=== PATIENT | female | born 1960 | race Caucasian/White ===

== ENCOUNTER 2024-03-04 11:15 | Outpatient (REF) | payer MEDICARE, SELFPAY ==
[2024-03-04 13:30] LABS: MANUAL DIFF FLAG NO
[2024-03-04 13:34] LABS: Basophils Absolute Auto 0.1 X10*3/uL (0.0-0.2); Basophils Percent Auto 1.2 % (0-2); Eosinophils Absolute Auto 0.1 X10*3/uL (0.0-0.4); Eosinophils Percent Auto 1.8 % (0-4); Hematocrit 41.4 % (37.0-47.0); Hemoglobin 13.8 g/dl (12.0-16.0); Imm Gran Abs Auto 0.01 X10*3/uL (0.00-0.03); Imm Gran Pct Auto 0.2 % (0.0-0.4); Lymphocytes Absolute Auto 1.9 X10*3/uL (1.2-4.9); Lymphocytes Percent Auto 37.4 % (20-40); Mean Corpuscular HGB Conc 33.3 g/dl (31.0-35.0); Mean Corpuscular Hemoglobin 30.7 pg (27.0-33.0); Mean Platelet Volume 9.8 fL (9.4-12.3); Monocytes Absolute Auto 0.3 X10*3/uL (0.1-1.2); Monocytes Percent Auto 6.8 % (2-11); Neutrophils Absolute Auto 2.6 x10*3/uL (2.0-8.3); Neutrophils Percent Auto 52.6 % (45-73); Platelet Count 304 X10*3/uL (160-400); Red Cell Distribution Width 13.9 % (11.0-16.0)
[2024-03-04 14:26] LABS: Alanine Aminotransferase 29 U/L (0-31); Albumin Level 4.2 g/dL (3.5-5.0); Alkaline Phosphatase 76 U/L (39-117); Aspartate Amino Transferase 32 U/L (5-31); Bilirubin Direct 0.1 mg/dL (0.0-0.5); Bilirubin Total 0.3 mg/dL (0.0-1.0); Lipase 28 U/L (8-78); Total Protein 6.9 g/dL (6.5-8.0)
== END 2024-03-04 11:16 | disposition home or self-care (01) ==
LOC: HO.10HDL 11:15
PROVIDERS: Visit Provider Internal Medicine Gastroenterology
DX: R10.84 Generalized abdominal pain (principal); R19.7 Diarrhea, unspecified
CPT/HCPCS: 36415; 80076; 83690; 85025

== ENCOUNTER 2024-03-05 09:33 | Outpatient (REF) | payer MEDICARE, SELFPAY ==
[2024-03-05 11:47] LABS: Leukocytes Stool Qualitative NEGATIVE (NEGATIVE)
== END 2024-03-05 09:34 | disposition home or self-care (01) ==
LOC: HO.10HDLNP 09:33
PROVIDERS: Visit Provider Internal Medicine Gastroenterology
DX: R10.84 Generalized abdominal pain (principal); R19.7 Diarrhea, unspecified
CPT/HCPCS: 87177; 87209; 87507; 89055

== ENCOUNTER 2024-06-01 15:02 | Outpatient (REF) | payer MEDICARE, SELFPAY ==
[2024-06-01 16:57] LABS: TSH reflex Free T4 1.49 uIU/mL (0.32-4.0)
== END 2024-06-01 15:03 | disposition home or self-care (01) ==
LOC: HO.LAB 15:02
PROVIDERS: PCP Family Medicine; Visit Provider Internal Medicine Gastroenterology
DX: R19.7 Diarrhea, unspecified (principal)
CPT/HCPCS: 36415; 84443

== ENCOUNTER 2024-06-04 07:54 | Outpatient (REF) | payer MEDICARE, SELFPAY ==
[2024-06-04 09:02] LABS: Leukocytes Stool Qualitative NEGATIVE (NEGATIVE)
[2024-06-04 10:59] LABS: Adenovirus F 40/41 Not Detected (Not Detect.); Astrovirus Not Detected (Not Detect.); Campylobacter Not Detected (Not Detect.); Cryptosporidium Not Detected (Not Detect.); Cyclospora cayetanensis Not Detected (Not Detect.); E. coli EAEC Not Detected (Not Detect.); E. coli EPEC Not Detected (Not Detect.); E. coli ETEC Not Detected (Not Detect.); E. coli STEC Not Detected (Not Detect.); Entamoeba histolytica Not Detected (Not Detect.); Giardia lamblia Not Detected (Not Detect.); Norovirus GI/GII Not Detected (Not Detect.); Plesiomonas shigelloides Not Detected (Not Detect.); Rotavirus A Not Detected (Not Detect.); Salmonella Not Detected (Not Detect.); Sapovirus Not Detected (Not Detect.); Shigella sp./EIEC Not Detected (Not Detect.); Vibrio Not Detected (Not Detect.); Vibrio Cholerae Not Detected (Not Detect.); Yersinia enterocolitica Not Detected (Not Detect.)
== END 2024-06-04 07:55 | disposition home or self-care (01) ==
LOC: HO.LNP 07:54
PROVIDERS: Visit Provider Internal Medicine Gastroenterology
DX: R19.7 Diarrhea, unspecified (principal)
CPT/HCPCS: 87177; 87209; 87507; 89055

== ENCOUNTER 2025-04-13 07:15 | Day surgery (SDC) | payer MEDICARE, SELFPAY ==
--- OUTSIDE RECORDS SUMMARY | 2025-02-24 11:29 | XMS_ITS | Clinical Summary ---
Author Organization [facility] Address [address] [facility] [address] [place] [address] Phone Care Team Providers Care Coppersmith Apprentice Name Role Phone Bisi Fritz BACKUP ENGINEER Unavailable Osmar Mariee MD Unavailable Kaye Huang BACKUP ENGINEER Unavailable Unavailable Chelsi Kenny SNACK STEWARDESS Unavailable Desiree Long MD Unavailable [phone] Emma Toth DPM Unavailable Unavaila Maurice Castle DPM Unavailable Unavailable Cami Mccormick BACKUP ENGINEER Unavailable Pcp, Unknown Primary Care Provider Unavailabl e Immunizations Immunization Administration Dates Next Due Influenza Quadrivalent Preservative Free IM 07/2016,06/03/2014 Influenza Trivalent Preservative Free IM 016 Influenza Trivalent w/ Preservative IM 5,07/13/2013,08/15/2012 Tdap 11/17/2015 Social History Tobacco Use Types Packs/Day Years Used Date Smoking Tobacco: Never Assessed Comments Unknown Sex and Gender Information Value Date Recorded Sex Assigned at Not on file Legal Sex Female 9:51 PM EDT Gender Identity Not on file Sexual Orientation Not on file Last Filed Vital Signs Vital Sign Reading Time Taken Comments Blood Pressure 128/66 12/27/2015 2:06 AM EDT Pulse - - Temperature - - Respiratory Rate - - Oxygen Saturation - - Inhaled Oxygen Concentration - - Weight 83 kg (183 lb) 12/27/2015 2:06 AM EDT Height 172.7 cm (5' 8 ) 12/27/2015 2:06 AM EDT Body Mass Index 27.83 12/27/2015 2:06 AM EDT Plan of Treatment Not on file Medical Devices Not on file Insurance [employer] [facility] [employer] [facility] [employer] [facility] [employer] [facility] [facility] [employer] [facility] [employer] P[employer] Care Teams Coppersmith Apprentice Relationship Specialty Start Date End Date Pcp, Unknown PCP - General 08/25/20 Bisi Fritz, BACKUP ENGINEER [email or web address] Historical LMR Provider 05/13/17 Osmar Mariee MD [address], [address] [place] [address] Historical LMR Provider 05/13/17 Kaye Huang, BACKUP ENGINEER Historical LMR Provider 05/13/17 Chelsi Kenny FNP [address], [address] [place] [address] [email or web address] Historical LMR Provider 05/13/17 Desiree Long MD [address], [address] [place] [address] Historical LMR Provider 05/13/17 Emma Toth DPM [address] [place] [address] Historical LMR Provider 05/13/17 Maurice Cervantes DPM [address] [place] [address] Historical LMR Provider 05/13/17 Cami Mccormick, MOY [address] [place] [address] Historical LMR Provider 05/13/17 Additional Source Comments The information contained in this document represents components of the legal health record. It is not the complete legal health record.[facility]
--- OUTSIDE RECORDS SUMMARY | 2025-02-24 11:29 | XMS_ITS | Patient Health Record ---
Author Organization [facility] Address [address] [place] [address] Care Team Providers Care Children'S Attendant Name Role Phone Chelsi Andrade MD Primary Care Provider Rashad Jaramillo Jr Unavailable Allergies Allergen (clinical drug ingredient) Drug/Non Drug Allergy documented on EMR Reaction Allergy Type Onset Date Status gabapentin Gabapentin Unknown Drug Allergy Activ e sulfamethoxazole / trimethoprim Sulfamethoxazole-Tr imethoprim Unknown Drug Allergy Active Results Component Value Reference Range Notes TSH reflex Free T4 Reviewed date:06/02/2024 03:44:11 PM Interpretation: Performing Lab:[address] [address] Notes/Report: TSH reflex Free T4 1.49 0.32-4.0 uIU/mL GI PANEL Reviewed date:06/11/2024 08:30:45 AM Interpretation: Performing Lab:[address] [address] Notes/Report: Campylobacter Not Detected Not Detect. Plesiomonas shigelloides Not Detected Not Detect. Salmonella Not Detected Not Detect. Vibrio Not Detected Not Detect. Vibrio Cholerae Not Detected Not Detect. Yersinia enterocolitica Not Detected Not Detect. E. coli EAEC Not Detected Not Detect. E. coli EPEC Not Detected Not Detect. E. coli ETEC Not Detected Not Detect. E. coli STEC Not Detected Not Detect. E. coli O157 Not applicable Not Detect. E. coli containing the O157 antigen are a subset of Shiga-like toxin-producing E. coli (STEC). Shigella sp./EIEC Not Detected Not Detect. Cryptosporidium Not Detected Not Detect. Cyclospora cayetanensis Not Detected Not Detect. Entamoeba histolytica Not Detected Not Detect. Giardia lamblia Not Detected Not Detect. Adenovirus F 40/41 Not Detected Not Detect. Astrovirus Not Detected Not Detect. Norovirus GI/GII Not Detected Not Detect. Rotavirus A Not Detected Not Detect. Sapovirus Not Detected Not Detect. All results must be correlated with clinical findings. Negative results do not exclude the possibility of gastrointestinal infection and should not be used as the sole basis for diagnosis, treatment, or other management decisions. Virus, bacteria, and parasite nucleic acid may persist in vivo independently of organism viability. Additionally, some organisms may be carried asymptomatically. Detection of organism targets does not imply that the corresponding organisms are infectious or are the causative agents for clinical symptoms. There is a risk of false negative values due to the presence of sequence variants in the gene targets of the assay, amplification inhibitors in specimens, or inadequate numbers of organisms for amplification. The identification of several diarrheagenic E. coli pathotypes has historically relied upon phenotypic characteristics. This panel targets genetic determinants characteristic of most pathogenic strains, but may not detect all strains having phenotypic characteristics of a pathotype. The performance of this test has not been established for monitoring treatment of infection with any of the panel organisms. This assay is performed by Multiplexed PCR, utilizing the MemoryMerge Array. Complete Blood Count Auto Di ff Reviewed date:03/04/2024 04:47:30 PM Interpretation: Performing Lab:[facility], [address] [place] [phone] Notes/Report: White Blood Count 5.0 4.8-10.8 X10*3/uL Red Blood Count 4.50 4.20-5.50 X10*6/uL Hemoglobin 13.8 12.0-16.0 g/dl Hematocrit 41.4 37.0-47.0 % Mean Corpuscular Volume 92.0 80.0-98.0 fL Mean Corpuscular Hemoglobin 30.7 27.0-33.0 pg Mean Corpuscular HGB Conc 33.3 31.0-35.0 g/dl Red Cell Distribution Width 13.9 11.0-16.0 % Platelet Count 304 160-400 X10*3/uL Mean Platelet Volume 9.8 9.4-12.3 fL Neutrophils Percent Auto 52.6 45-73 % Imm Gran Pct Auto 0.2 0.0-0.4 % Lymphocytes Percent Auto 37.4 20-40 % Monocytes Percent Auto 6.8 2-11 % Eosinophils Percent Auto 1.8 0-4 % Basophils Percent Auto 1.2 0-2 % NRBC Pct Auto 0.0 0.0-0.2 /100WBC Neutrophils Absolute Auto 2.6 2.0-8.3 x10*3/u L Imm Gran Abs Auto 0.01 0.00-0.03 X10*3/uL Lymphocytes Absolute Auto 1.9 1.2-4.9 X10*3/u L Monocytes Absolute Auto 0.3 0.1-1.2 X10*3/uL Eosinophils Absolute Auto 0.1 0.0-0.4 X10*3/u L Basophils Absolute Auto 0.1 0.0-0.2 X10*3/uL NRBC Abs Auto 0.000 0.0-0.012 X10*3/uL Liver Panel Reviewed date:03/04/2024 04:47:23 PM Interpretation: Performing Lab:[address] [address] Notes/Report: Bilirubin Total 0.3 0.0-1.0 mg/dL Bilirubin Direct 0.1 0.0-0.5 mg/dL Aspartate Amino Transferase 32 5-31 U/L Alanine Aminotransferase 29 0-31 U/L Total Protein 6.9 6.5-8.0 g/dL Albumin Level 4.2 3.5-5.0 g/dL Alkaline Phosphatase 76 39-117 U/L Lipase Reviewed date:03/04/2024 04:47:17 PM Interpretation: Performing Lab:[facility], [address] [place] [address] Notes/Report: Lipase 28 8-78 U/L Leukocytes Stool Qualitative Reviewed date:03/05/2024 03:53:54 PM Interpretation: Performing Lab:[facility], [address] [place] [phone] Notes/Report: Leukocytes Stool Qualitative NEGATIVE NEGATIVE Cancelled Serology Reviewed date:03/05/2024 03:53:46 PM Interpretation: Performing Lab:[facility], [address] [place] [phone] Notes/Report: Cancelled Serology SEE NOTE ORANGE CAPPED PRESERVATIVE CONTAINER OVERFILLED ORANGE CAPPED PRESERVATIVE CONTAINER FOR GI PANEL OVERFILLED CALLED TO [facility]. 03/05/24 1125AM BY [facility]. CALLED TO [facility] 03/05/24 1125AM BY [facility]. Cancelled Serology SEE NOTE ORANGE CAPPED PRESERVATIVE CONTAINER OVERFILLED ORANGE CAPPED PRESERVATIVE CONTAINER FOR GI PANEL OVERFILLED CALLED TO [facility]. 03/05/24 1125AM BY [facility]. CALLED TO [facility]. 03/05/24 1125AM BY [facility]. Ova and Parasite Reviewed date:03/26/2024 08:13:07 AM Interpretation: Performing Lab:[address] [address] Notes/Report: Ova and Parasite SEE NOTE OVA AND PARASITES, CONC AND PERM SMEAR Micro Number: [id number] Test Status: Final Specimen Source: Stool Specimen Quality: Adequate CONCENTRATION 1: No ova or parasites seen TRICHROME 1: No ova or parasites seen Routine Ova and Parasite exam may not detect some parasites that occasionally cause diarrheal illness. Cryptosporidium Antigen and/or Cyclospora and Isospora Exam may be ordered to detect these parasites. One negative sample does not necessarily rule out the presence of a parasitic infection. For additional information, please refer to https://education.[employer]/faq/JER550 (This link is being provided for informational/ educational purposes only.) THIS TEST WAS PERFORMED AT: [facility] [employer] [facility] [address] [address] NASIR CORTÉS MD Leukocytes Stool Qualitative Reviewed date:06/04/2024 09:40:54 AM Interpretation: Performing Lab:[facility], [address] [place] [address] Notes/Report: Leukocytes Stool Qualitative NEGATIVE NEGATIVE Ova and Parasite Reviewed date:06/12/2024 07:52:41 AM Interpretation: Performing Lab:[facility], [address] [place] [phone] Notes/Report: Ova and Parasite SEE NOTE OVA AND PARASITES, CONC AND PERM SMEAR Micro Number: [id number] Test Status: Final Specimen Source: Stool Specimen Quality: Adequate CONCENTRATION 1: No ova or parasites seen TRICHROME 1: No ova or parasites seen Routine Ova and Parasite exam may not detect some parasites that occasionally cause diarrheal illness. Cryptosporidium Antigen and/or Cyclospora and Isospora Exam may be ordered to detect these parasites. One negative sample does not necessarily rule out the presence of a parasitic infection. For additional information, please refer to https://[employer]/faq/AQI609 (This link is being provided for informational/ educational purposes only.) THIS TEST WAS PERFORMED AT: [place] [address] EUSEBIO LANG MD Reason For Referral No Information Medications Medication SIG (Take, Route, Fr equency, Duration) Notes Start Date End Date Status Probiotic 250 MG as directed Orally Active Calcium 500 MG 1 tablet with meals Orally Twice a day Active Dicyclomine HCl 20 MG 1 tablet Orally 2- 4 times a day 01/27/2025 Active Multi Vitamin - 1 tablet Orally Once a day Active Immunizations Vaccine Route Administration Date Status Comme nts Influenza Unknown 03/22/2021 Administered Influenza Unknown 06/28/2022 Administered Influenza Unknown 05/12/2024 Administered Social History Tobacco Use: Social History Observation Description Date Details (start date - stop date) Never Smoker NA - NA Tobacco Use/Smoking Question Answer Notes Patient is a nonsmoker Alcohol Screen Question Answer Notes Did you have a drink containing alcohol in the p ast year? No Points 0 Interpretation Negative Problems Problem Type SNOMED Code ICD Code Onset Dates Problem Status W/U Status Risk Notes Problem 377272288 Colon cancer screening (Z12.11) Active confirmed Problem 861374620 Generalized abdominal pain (R10.84) Active confirmed Problem 082134575 Diverticulitis (K57.92) Active confirmed Problem 673390958 Elevated LFTs (R79.89) Active confirmed Problem 56421212 Diarrhea, unspecified type (R19.7) Active confirmed Vital Signs Temperature 97.5 degrees Fahrenheit 01/27/2025 Blood pressure diastolic 01 mm Hg 01/27/2025 Height 68 in 01/27/2025 Blood pressure systolic 001 mm Hg 01/27/2025 Weight 222.2 lbs 01/27/2025 BMI 33.78 kg/m2 01/27/2025 Encounters Encounter Location Date Provider Diagnosis [facility] [address] [place] [facility] [place] [address] 06/01/2024 Rashad Beebe Jr Diarrhea, unspecified type R19.7 [facility] [address] [place] [facility] [place] [address] 01/27/2025 Rashad Beebe Jr Epigastric pain R10.13 and Diverticulitis K57.92 [facility] [address] [facility] [place] [address] 03/03/2024 Rashad Beebe Jr Generalized abdominal pain R10.84 and Diarrhea, unspecified type R19.7 [facility] [address] [facility] [place] [address] 03/04/2024 Rashad Beebe Jr Elevated LFTs R79.89 [facility] [address] [facility] [place] [address] 03/05/2024 Rashad Beebe Jr Diarrhea, unspecified type R19.7 and Elevated LFTs R79.89 [facility] [address] [facility] [place] [address] 03/16/2024 Rashad Beebe Jr [facility] [address] [facility] [place] [address] 06/02/2024 Rashad Beebe Jr [facility] [address] [facility] [place] [address] 06/11/2024 Rashad Beebe Jr [facility] [address] [facility] [place] [address] 01/04/2025 Rashad Beebe Jr [facility] [address] [facility] [place] [address] 01/25/2025 Rashad Beebe Jr [facility] [address] [facility] [place] [address] 01/27/2025 Rashad Beebe Jr Assessments Encounter Date Diagnosis (ICD Code) Assessment Notes Treatment Notes Treatment Clinical Notes Section Notes 06/01/2024 Diarrhea, unspecified type (ICD-10 - R19.7) We discussed he r symptoms today. Her change in bowel habits could be related to a postinfectious IBS-type picture. We recommended Gas-X for abdominal bloating and gas symptoms and she can use Imodium prior to going out for a trip. Stool tests will be obtained in followup will be in 12 months. She will also have a TSH. She did ask about possible WEAVER HAND issues and we recommended followup with her WEAVER HAND in [facility] as planned 01/27/2025 Epigastric pain (ICD-10 - R10.13) We discussed her symptoms in detail today. We reviewed outside records from her 2 different hospital visits in [place], [place], as well as the urgent care visit in detail. It appears that her presentation has been consistent with diverticulitis which was possibly refractory but more likely recurrent. Her symptoms at this time appear most consistent with a postinfectious IBS type picture although the upper GI symptoms need further evaluation. We recommend continuing to add fiber back and even considering supplementation with an oral fiber supplement such as Metamucil. She has been prescribed dicyclomine for her symptoms. She will need follow-up colonoscopy this fall regarding her CT abnormalities and clinical course. We have recommended upper endoscopy at the same time because of her upper GI symptoms and epigastric discomfort. She is aware of risks and benefits and agrees to proceed. Today's visit was 45 minutes. 01/27/2025 Diverticulitis (ICD-10 - K57.92) We discussed her symptoms in detail today. We reviewed outside records from her 2 different hospital visits in [place], [place], as well as the urgent care visit in detail. It appears that her presentation has been consistent with diverticulitis which was possibly refractory but more likely recurrent. Her symptoms at this time appear most consistent with a postinfectious IBS type picture although the upper GI symptoms need further evaluation. We recommend continuing to add fiber back and even considering supplementation with an oral fiber supplement such as Metamucil. She has been prescribed dicyclomine for her symptoms. She will need follow-up colonoscopy this fall regarding her CT abnormalities and clinical course. We have recommended upper endoscopy at the same time because of her upper GI symptoms and epigastric discomfort. She is aware of risks and benefits and agrees to proceed. Today's visit was 45 minutes. 03/03/2024 Generalized abdominal pain (ICD-10 - R10.84) 03/04/2024 Elevated LFTs (ICD-10 - R79.89) 03/05/2024 Diarrhea, unspecified type (ICD-10 - R19.7) 03/03/2024 Diarrhea, unspecified type (ICD-10 - R19.7) 03/05/2024 Elevated LFTs (ICD-10 - R79.89) Plan Of Treatment Pending Test Test Name Order Date LIVER PROFILE 03/03/2024 LIPASE 03/03/2024 CBC w/o DIFF 03/03/2024 STOOL WBC 06/01/2024 STOOL WBC 03/03/2024 OVA & PARASITES (O&P) 06/01/2024 OVA & PARASITES (O&P) 03/03/2024 US ABD AORTA 03/04/2024 US ABD 03/05/2024 GI PANEL 03/05/2024 GI PANEL 03/03/2024 Future Test Test Name Order Date UPPER GI ENDOSCOPY 01/27/2025 COLONOSCOPY 01/27/2025 Next Appt Details Provider Name:Rashad tanner , 04/13/2025 09:10:00 AM, [address] [place] [address] , [place], [place], [id number], Insurance Providers Payer Name Payer Address Payer Phone Subscriber Number Group Number Insured Name Patient Relationship to Insured Coverage Start Date Coverage End Date MEDICARE OF [place] [address] [facility] [place] [address] [id number] IHSAN MCNEAL Self - patient is the insured [employer] ATTN CLAIMS [address] [place] [address] [id number] IHSAN MCNEAL Self - patient is the insured Medical (General) History Medical History History ICD Code Paroxysmal atrial fibrillation. Osteoarthritis Diverticulitis, colonoscopy 03/29/20, diverticulosis, no polyps, ten-year followup Neuropathy Elevated blood sugar Plantar fasciitis Hearing loss Surgical History Surgery Date(Month/Year) foot 2002 gallbaldder 1999 Hospitalization History Reason Date(Month/Year) Diverticulitis x 2, 11/19 afib 2019 diverticulitis 2019
--- OUTSIDE RECORDS SUMMARY | 2025-02-24 11:29 | XMS_ITS | Patient Health Record ---
Author Organization [facility] Address [address] [place] [address] Care Team Providers Care Digital Project Manager Name Role Phone Chelsi Andrade MD Primary Care Provider Logan Lewis Unavailable [phone] Allergies Allergen (clinical drug ingredient) Drug/Non Drug Allergy documented on EMR Reaction Allergy Type Onset Date Status gabapentin Gabapentin Unknown Drug Allergy Activ e Substance with sulfonamide structure and antibacterial mechanism of action (substance) Sulfa Antibiotics skin peels on hands Drug Allergy Active Reason For Referral No Information Medications Medication SIG (Take, Route, Fr equency, Duration) Notes Start Date End Date Status Physical Therapy . . . 2-3x/week; Durat ion: 3-4 weeks 01/02/2023 Active Social History Tobacco Use: Social History Observation Description Date Details (start date - stop date) Never Smoker NA - NA Tobacco Use/Smoking Question Answer Notes Are you a: nonsmoker Additional Findings: Tobacco Non-User Current no n-smoker Alcohol Screen Question Answer Notes Did you have a drink containing alcohol in the p ast year? No Points 0 Interpretation Negative Tobacco use other than smoking: Question Answer Notes Are you an other tobacco user? No Problems Problem Type SNOMED Code ICD Code Onset Dates Problem Status W/U Status Risk Notes Problem Localized, primary osteoarthritis of the ankle and/or foot (378278453) Primary osteoarthrit is, left ankle and foot (M19.072) Active confirmed Problem Acquired hallux rigidus (1280727) Hallux rigidus, left foot (M20.22) Active confirmed Problem Acquired hallux rigidus (0208386) Hallux rigidus, right foot (M20.21) Active confirmed Plan Of Treatment Pending Test Test Name Order Date X ray : Foot, left 3V 01/02/2023 X ray : Foot, right 3V 01/02/2023 Insurance Providers Payer Name Payer Address Payer Phone Subscriber Number Group Number Insured Name Patient Relationship to Insured Coverage Start Date Coverage End Date Cy Matthew [address] [place] [address] [id number] Sindy Rubio Self - patient is the insured Medical (General) History Medical History History ICD Code Diverticulosis pre diabetic Heart disease Numbness Chicken pox Sleep apnea A fib Surgical History Surgery Date(Month/Year) left foot 05/25/2004 gall bladder
[2025-04-09 15:40] VITALS: BMI 33.8
--- NOTE | 2025-04-12 09:23 | HO.ANESPROP2 ---
Documented by User: Angie Winkler NP 04/12/25 09:24 HPI - Anesthesia Eval Consult details Narrative: 65yo F for Upper Endoscopy and Colonoscopy PAF s/p cardioversion - daily aspirin only PMFSH Past Medical History Medical History History of cardioversion SALOME on CPAP Hearing loss Plantar fasciitis Elevated blood sugar Neuropathy Osteoarthritis PAF (paroxysmal atrial fibrillation) History of pneumonia History of diverticulitis Surgical History Surgical History Hx of foot surgery Hx of cholecystectomy Hx of colonoscopy (03/29/20) Social History Social History Are you a primary child care assistant to a significant other at home: No Do you presently have visiting nurse or other home services: No Patient Tobacco Use Status: Never used Tobacco Second Hand Smoke Exposure: No Meds Allergies Allergy/AdvReac Type Severity Reaction Status Date / Time gabapentin Allergy Unknown Verified 04/09/25 15:40 sulfamethoxazole (From Allergy Unknown Verified 04/09/25 15:40 Bactrim) trimethoprim (From Bactrim) Allergy Unknown Verified 04/09/25 15:40 Home Medications ?Medication ?Instructions ?Recorded ?Confirmed ?Last Taken ?Type Probiotic 250 mg PO DAILY 04/09/25 04/09/25 Unknown History calcium 500 mg tablet 500 mg PO BID 04/09/25 04/09/25 Unknown History dicyclomine 20 mg tablet 20 - 40 mg PO QID PRN Abdominal 04/09/25 04/09/25 Unknown History Discomfort multivitamin 1 tab PO DAILY 04/09/25 04/09/25 Unknown History Exam Height,Weight and Vital Signs: Height 5 ft 8 in Weight 100.754 kg Assessment and Plan Assessment Anesthesia Assessment: Chart Reviewed Documented by User: Sindy Andrews MD 04/13/25 09:14 [facility] Past Medical History Medical History History of cardioversion SALOME on CPAP Hearing loss Plantar fasciitis Elevated blood sugar Neuropathy Osteoarthritis PAF (paroxysmal atrial fibrillation) History of pneumonia History of diverticulitis Surgical History Surgical History Hx of foot surgery Hx of cholecystectomy Hx of colonoscopy (03/29/20) History of Problems with Anesthesia: No Social History Social History Are you a primary child care assistant to a significant other at home: No Do you presently have visiting nurse or other home services: No Patient Tobacco Use Status: Never used Tobacco Second Hand Smoke Exposure: No Meds Allergies Allergy/AdvReac Type Severity Reaction Status Date / Time gabapentin Allergy Unknown Verified 04/09/25 15:40 sulfamethoxazole (From Allergy Unknown Verified 04/09/25 15:40 Bactrim) trimethoprim (From Bactrim) Allergy Unknown Verified 04/09/25 15:40 Home Medications ?Medication ?Instructions ?Recorded ?Confirmed ?Last Taken ?Type Probiotic 250 mg PO DAILY 04/09/25 04/09/25 Unknown History calcium 500 mg tablet 500 mg PO BID 04/09/25 04/09/25 Unknown History dicyclomine 20 mg tablet 20 - 40 mg PO QID PRN Abdominal 04/09/25 04/09/25 Unknown History Discomfort multivitamin 1 tab PO DAILY 04/09/25 04/09/25 Unknown History Exam Airway Mallampati Class: II TM Dist: >3cm Neck ROM: Full Loose/Missing/Broken Teeth: No Heart: RRR Lungs: CTA Assessment and Plan Assessment Anesthesia Assessment: Anesthesia Plan Discussed and Chart Reviewed Final Anesthetic Review History of Problems with Anesthesia: No NPO: Yes ASA Class: III Final Preanesthetic Review: Meds/Allgs Chart Reviewed, Consent Obtained/Reviewed and Anes Risks/Benef Reviewed Patient Risk: Intermediate Procedure Risk: Intermediate Anesthetic Plan Anesthetic Plan: MAC: Disposition: Standard PACU
[2025-04-13 07:56] VITALS: BP 119/69; PULSE 69; RESP 16; TEMP 37.1; O2SAT 94
[2025-04-13] MEDS: Lactated Ringers 1,000 ML 100 ML IVCONT (08:04)
--- NOTE | 2025-04-13 09:05 | P.HPSUR_ITS ---
Pre-Procedural Eval Section A - 24 Hr Update-Section A only Date of Service: 04/13/25 Section B - Complete if H&P > 30 days Chief Complaint: Diverticulitis of intestine, part unspecified, Details of Present Illness: see H&P no changes Relevant Family History (Specify if Yes): No Relevant Social History: None Present Medications: see Short Stay Collaborative assessment Medical History: No relevant PMH History of Previous Operations: No relevant previous surgery Allergies: Allergies Allergy/AdvReac Type Severity Reaction Status Date / Time gabapentin Allergy Unknown Verified 04/09/25 15:40 sulfamethoxazole (From Allergy Unknown Verified 04/09/25 15:40 Bactrim) trimethoprim (From Bactrim) Allergy Unknown Verified 04/09/25 15:40 Review of Systems Sugical H&P ROS: Negative: Constitution, Cardiovascular, Respiratory, N eurological, Psychiatric, Hem-Onc, Allergic/Immunologic, Gastrointestinal, Genitourinary, Musculoskeletal, Integumentary, Endocrine and Eyes/Ears/Nose/Throat Exam Surgical H&P Exam: Normal: HEENT, Normal: Heart, Normal: Lungs, Normal: Extremities, Normal: Abdomen, Normal: Skin and Normal: Neurological Plan Diagnosis/Plan: Unchanged I have reviewed the history and physical and performed a pertinent physical examination on my patient. No changes have occurred unless specified. Time Spent With Patient Time: Total time managing care of this patient today ____ minutes.
[2025-04-13 10:09] VITALS: BP 98/60; PULSE 67; RESP 12; TEMP 36.2; O2SAT 95
--- NOTE | 2025-04-13 10:09 | PM.OP ---
Brief Operative Note Date of Service: 04/13/25 Pre-op diagnosis: epigatric pain screening Post-op diagnosis: same Procedure: egd colon Surgeon: Rashad Beebe MD Anesthesia: MAC Estimated blood loss (mL): 2
[2025-04-13 10:24] VITALS: BP 102/69; PULSE 57; RESP 18; TEMP 36.7; O2SAT 96
--- NOTE | 2025-04-13 11:02 | OP_ITS ---
DATE OF SERVICE: 04/13/2025 SURGEON: Rashad Beebe MD INDICATIONS: 1. Epigastric pain. 2. Colon cancer screening and prior history of adenomatous colon polyps. PREOPERATIVE DIAGNOSIS: POSTOPERATIVE DIAGNOSIS: PROCEDURE PERFORMED: 1. Upper endoscopy with biopsy. 2. Colonoscopy to the terminal ileum. ESTIMATED BLOOD LOSS: COMPLICATIONS: ANESTHESIA: Monitored anesthesia care. ASSISTANTS: SPECIMENS: DESCRIPTION OF PROCEDURE: A history and physical was performed. The risks and benefits of the procedure were explained to the patient. Informed consent was obtained. The patient was placed in the left lateral decubitus position. The Olympus video gastroscope was introduced into the esophagus, stomach, duodenum. Examination was performed. The scope was removed. She was repositioned for colonoscopy. A digital rectal exam was performed and was found to be normal. The Olympus pediatric video colonoscope was introduced into the rectum and advanced to the cecum. The cecum was identified by transillumination, palpation, and identification of ileocecal valve. Examination was performed. The scope was removed. She tolerated the procedures well and was returned to the recovery area in stable condition. FINDINGS: Upper endoscopy: 1. Esophagus: The esophagus showed a slightly irregular EG junction. This was biopsied. 2. Stomach: The stomach showed no evidence of masses, ulcers, or polyps. Antral biopsies were obtained to evaluate for H pylori. 3. Duodenum: The bulb and 2nd portion were normal. Colonoscopy: The terminal ileum was examined and appeared normal. The visualized colonic mucosa was within normal limits without evidence of masses or ulcers. No polyps were identified. The quality of the prep was good. The sigmoid was quite tortuous as on previous examination. This made the examination extended and difficult. Retroflexed examination showed some small internal hemorrhoids. IMPRESSION: 1. Normal upper endoscopy. 2. Normal colonoscopy. RECOMMENDATION: Follow up the biopsy results. MD AMANDA Stevenson/GEOVANNY / [id number]
== END 2025-04-13 11:17 | disposition home or self-care (01) ==
PROVIDERS: PCP Family Medicine; Visit Provider Internal Medicine Gastroenterology
PROC: (CPT 43239; principal; 2025-04-13 09:10)
DX: Z12.11 Encounter for screening for malignant neoplasm of colon (principal); K56.2 Volvulus; K57.30 Diverticulosis of large intestine without perforation or abscess without bleeding; K64.8 Other hemorrhoids; Z87.19 Personal history of other diseases of the digestive system; Z86.0101 Personal history of adenomatous and serrated colon polyps; R10.13 Epigastric pain; K22.89 Other specified disease of esophagus; I48.0 Paroxysmal atrial fibrillation; G47.33 Obstructive sleep apnea (adult) (pediatric); Z99.89 Dependence on other enabling machines and devices
CPT/HCPCS: 43239; G0105; 88305; 88342; J2003; J2704